=== PATIENT | female | born 1980 | race Caucasian/White ===

== ENCOUNTER 2021-10-15 12:28 | Emergency (ER) | payer BC ==
[~2021-10-15] VITALS: Ht 175.3 cm; Wt 68.0 kg
[2021-10-15] MEDS ORDERED: HYDROMORPHONE 1 MG/1 ML DISP.SYRIN ONE ×5 (12:43→20:28)
[2021-10-15] MEDS ORDERED: PROPOFOL 200 MG/20 ML BOTTLE IV ONE (12:45)
[2021-10-15] MEDS: HYDROMORPHONE 1 MG/1 ML DISP.SYRIN IV ONE ×5 (12:49→20:44)
[2021-10-15] MEDS ORDERED: PROPOFOL 200 MG/20 ML BOTTLE ONE ×2 (13:13→13:47)
--- NOTE | 2021-10-15 13:38 | NUR ---
PROCEDURAL NOTE: Closed reduction of right tib/fib fracture, procedural timeout carried out. Patient placed on continuous monitoring. Nonrebreather mask placed on patient. Patient signed consent and agreed with plan of care.
[2021-10-15] MEDS: PROPOFOL 200 MG/20 ML BOTTLE IV ONE (13:40)
--- NOTE | 2021-10-15 13:40 | NUR ---
Dr. Campos administered propofol for procedure. Patient placed on continuous monitoring.
--- NOTE | 2021-10-15 20:10 | NUR ---
Received call back from [facility], spoke with Reyes, with transfer information, Patient accepted by Dr. Hernandez, going to [facility], [place] [id number], Number to report to .
--- NOTE | 2021-10-15 20:13 | NUR ---
Called [facility], for transport to [facility], eta 30 min.
--- NOTE | 2021-10-15 20:45 | NUR ---
[facility] ambulance arrived to ER to transport patient to [facility]. Report and documentation given to EMT.
--- NOTE | 2021-10-15 20:49 | NUR ---
Report given to Martín BECK [facility].
== END 2021-10-15 20:51 | disposition short-term general hospital (02) ==
LOC: ER 12:28
DX: S82.391A Other fracture of lower end of right tibia, initial encounter for closed fracture (principal); S82.831A Other fracture of upper and lower end of right fibula, initial encounter for closed fracture; W01.0XXA Fall on same level from slipping, tripping and stumbling without subsequent striking against object, initial encounter; Y92.9 Unspecified place or not applicable; Z20.822 Contact with and (suspected) exposure to COVID-19
CPT/HCPCS: 27752; 73564; 73590 ×2; 73610; 87426; 96374; 96376; 99152; 99285; J1170 ×5; A4663; G0500; J3490